=== PATIENT | female | born 1950 | race Asian ===

== ENCOUNTER 2022-03-09 17:57 | Inpatient (IN) | payer OTHER ==
[~2022-03-09] VITALS: Ht 157.5 cm; Wt 34.0 kg
[2022-03-09 18:04] VITALS: BP_SYST 104
--- NOTE | 2022-03-09 18:07 | NUR ---
Accucheck done and results were 103.
--- NOTE | 2022-03-09 19:11 | NUR ---
ER examining patient in the [address] bed.
[2022-03-09] MEDS ORDERED: NACL 0.9% 1,000 ML IV ONE (19:15)
[2022-03-09 19:48] LABS: EOSINOPHILS # (AUTO) 0.1 K/uL (0.0-0.4); LYMPHOCYTES # (AUTO) 0.7 K/uL (1.0-5.5)
[2022-03-09 19:58] LABS: BASOPHILS % (AUTO) 0.5 % (0.0-2.0); EOSINOPHILS % (AUTO) 0.7 % (0.0-4.0); HEMATOCRIT 33.3 % (36-48); HEMOGLOBIN 11.1 g/dL (12.0-16.0); LYMPHOCYTES % (AUTO) 10.4 % (20.5-51.5); MEAN CORPUSCULAR HEMOGLOBIN 30 pg (27-31); MEAN CORPUSCULAR HGB CONC 33 % (32-36); MEAN CORPUSCULAR VOLUME 91 fL (79.0-98.0); MONOCYTES # (AUTO) 0.9 K/uL (0.0-1.0); MONOCYTES % (AUTO) 12.1 % (1.7-9.3); NEUTROPHILS # (AUTO) 5.5 K/uL (1.8-7.7); NEUTROPHILS % (AUTO) 76.3 % (40.0-70.0); PLATELET COUNT (AUTO) 237 K/uL (130-430); RED BLOOD CELL COUNT(AUTO) 3.65 MIL/uL (4.2-6.2); RED CELL DISTRIBUTION WIDTH 14.4 % (9.0-15.0); WHITE BLOOD COUNT (AUTO) 7.2 K/uL (4.8-10.8)
[2022-03-09 19:59] LABS: ANION GAP 10 (5-15); CALCIUM 9.1 mg/dL (8.4-11.0); CHLORIDE 105 mmol/L (98-107); CREATININE 1.34 mg/dL (0.55-1.30); GLUCOSE 126 mg/dL (70-99); POTASSIUM 3.9 mmol/L (3.5-5.1); SODIUM SERUM 140 mmol/L (136-145); UREA NITROGEN, BLOOD 21 mg/dL (8-21)
[2022-03-09 20:08] LABS: ALANINE AMINOTRANSFERASE 8 U/L (12-78); ALBUMIN 2.8 g/dL (3.4-4.8); ASPARTATE AMINOTRANSFERASE 16 U/L (10-37); TOTAL BILIRUBIN 0.7 mg/dL (0.0-1.0)
[2022-03-09 20:10] LABS: GFR AFRICAN AMERICAN 50 mL/min (>90)
--- NOTE | 2022-03-09 20:12 | NUR ---
Received report from Meghan DIAS AOX4 VSS Mandarin speking only
--- NOTE | 2022-03-09 21:57 | NUR ---
Admit bed requested Patient will be admitted to care of . Admitted to Tele unit. Diagnosis syncope Inpatient (Yes or No) yes Observation (Yes or No) no Orientation concerns or request close to nursing station (Yes or No) yes Covid Status negative On vent or bipap no Isolation requirements no Needs a sitter no From Home (Yes or if No enter name of facility) [facility] Requires Dialysis (Yes or No) no Med Rec Completed (Yes of No) pending
[2022-03-09] MEDS ORDERED: MAGNESIUM SULFATE 50 ML IV PRN (22:00)
[2022-03-09] MEDS ORDERED: MUPIROCIN 2% TOPICAL OINTMENT 22 GM NS PRN (22:00)
[2022-03-09] MEDS ORDERED: ONDANSETRON HCL 4 MG/2 ML VIAL IVP PRN (22:00)
[2022-03-09] MEDS ORDERED: MORPHINE 2 MG/ML INJ. SYRINGE IVP PRN ×2 (22:00)
[2022-03-09] MEDS ORDERED: POTASSIUM CHLORIDE 20 MEQ TAB.PRT.SR PO PRN (22:00)
[2022-03-09] MEDS ORDERED: ACETAMINOPHEN 325 MG TABLET PO PRN (22:00)
[2022-03-09] MEDS ORDERED: LORazepam 2 MG/ML VIAL IVP PRN (22:00)
[2022-03-09] MEDS ORDERED: DOCUSATE SODIUM 100 MG CAPSULE PO PRN (22:00)
[2022-03-09] MEDS ORDERED: DEXTROSE 50% JECT 50 ML DISP.SYRIN IVP PRN (22:15)
[2022-03-09] MEDS: NACL 0.9% 1,000 ML IV SCH (22:39)
--- NOTE | 2022-03-09 22:50 | NUR ---
MRSA SAMPLE SENT TO LAB.
--- NOTE | 2022-03-09 22:54 | NUR ---
HERMELINDO SAMPLE SENT TO LAB.
[2022-03-09] MEDS: levETIRAcetam 500 MG TABLET PO SCH (23:13)
--- NOTE | 2022-03-10 00:28 | NUR ---
Pt BIBA after unwitnessed fall @ [facility] AOX3-4 Mandarin speaking VSS Able to make needs known Will continue to monitor
--- NOTE | 2022-03-10 01:02 | NUR ---
Patient will be admitted to [id number]. Belongings list completed. Complete and up to date summary report printed. SBAR report to be given at bedside to ARUN Bernal. with opportunity for questions.
--- NOTE | 2022-03-10 03:30 | NUR ---
ADMIT 71 y/o female brought to the unit from ED. Pt TREVON after unwitnessed fall @ [facility] yesterday. Pt is Mandarin speaking AOX1 maybe 2. Dx with Syncope and Hx of malignant brain tumor frontal lobe, epilepsy and DM.. Pt NPO at this time had a 20G in the L F/A infusing with ns@ 70ml/hr. Pt had stool and urine all over her was given a completed bed bath and all linens changed. Sz precautions in place. Bed in lowest position and all safety measures are in place.
[2022-03-10 04:00] VITALS: BP_SYST 134
[2022-03-10 05:06] LABS: BASOPHILS % (AUTO) 0.4 % (0.0-2.0); EOSINOPHILS # (AUTO) 0.1 K/uL (0.0-0.4); EOSINOPHILS % (AUTO) 1.1 % (0.0-4.0); HEMATOCRIT 32.2 % (36-48); LYMPHOCYTES # (AUTO) 1.1 K/uL (1.0-5.5); LYMPHOCYTES % (AUTO) 17.3 % (20.5-51.5); MEAN CORPUSCULAR HEMOGLOBIN 31 pg (27-31); MEAN CORPUSCULAR HGB CONC 34 % (32-36); MEAN CORPUSCULAR VOLUME 91 fL (79.0-98.0); MONOCYTES # (AUTO) 0.8 K/uL (0.0-1.0); MONOCYTES % (AUTO) 12.7 % (1.7-9.3); NEUTROPHILS # (AUTO) 4.3 K/uL (1.8-7.7); NEUTROPHILS % (AUTO) 68.5 % (40.0-70.0); PLATELET COUNT (AUTO) 196 K/uL (130-430); RED BLOOD CELL COUNT(AUTO) 3.55 MIL/uL (4.2-6.2); RED CELL DISTRIBUTION WIDTH 14.8 % (9.0-15.0); WHITE BLOOD COUNT (AUTO) 6.3 K/uL (4.8-10.8)
[2022-03-10 05:26] LABS: CALCIUM 8.1 mg/dL (8.4-11.0); CREATININE 1.01 mg/dL (0.55-1.30); POTASSIUM 3.6 mmol/L (3.5-5.1)
--- NOTE | 2022-03-10 05:30 | NUR ---
BLOOD SUGAR WAS 95 NO COVERAGE GIVEN.
[2022-03-10 08:00] VITALS: BP_SYST 133
--- NOTE | 2022-03-10 09:15 | NUR ---
CONSULTATION PAGED REASON FOR CONSULTATION:BRAIN NEOPLASM WAS CONSULT CALLED?T -PERSON WHO WAS NOTIFIED:YASHIRA CONSULTING PHYSICIAN:ADITHYA SULLIVAN [facility] SPECIALTY:[employer] PHONE NUMBER:[phone] REQUESTING PHYSICIAN:DR.[facility]
[2022-03-10] MEDS: levETIRAcetam 500 MG TABLET PO SCH ×2 (10:55→21:08)
[2022-03-10] MEDS: NACL 0.9% 1,000 ML IV SCH ×2 (11:22→14:57)
[2022-03-10 12:00] VITALS: BP_SYST 157
--- NOTE | 2022-03-10 14:45 | NUR ---
New IV access Pt pulled out IV access, minimal bleeding noted. New IV access started on R AC 22 gauge intact. NS @ 70 ml/hr, restarted and infusing well. Endorsed to primary nurse,
[2022-03-10 16:04] VITALS: BP_SYST 139
[2022-03-10] MEDS: INSULIN LISPRO SLIDING SCALE 100 UNITS/ML VIAL (humaLOG) SUBCUT PRN (17:45)
[2022-03-10] MEDS: DEXAMETHASONE SOD PHOSPHATE 4 MG/ML VIAL IVP SCH (18:15)
[2022-03-10 20:00] VITALS: BP_SYST 142
--- NOTE | 2022-03-10 20:00 | NUR ---
71 y/o female AOX2, understands commands and nods head from@ [facility] yesterday. Pt is Mandarin speaking AOX1 maybe 2. Dx with Syncope and Hx of malignant brain tumor frontal lobe, epilepsy and DM..contact facility for folllow up on brain tumor, no response. called [facility] to follow up on brain tumor history, VM no answer. lungs are diminished at bases, incontinent. Sz precautions in place. Bed in lowest position and all safety measures are in place.
[2022-03-11] VITALS (7 sets, daily range): BP systolic 105–144
[2022-03-11] MEDS: DEXAMETHASONE SOD PHOSPHATE 4 MG/ML VIAL IVP SCH ×4 (06:00→17:05)
[2022-03-11 06:53] LABS: BASOPHILS % (AUTO) 0.3 % (0.0-2.0); EOSINOPHILS # (AUTO) 0.1 K/uL (0.0-0.4); EOSINOPHILS % (AUTO) 1.2 % (0.0-4.0); HEMATOCRIT 36.7 % (36-48); HEMOGLOBIN 12.5 g/dL (12.0-16.0); LYMPHOCYTES # (AUTO) 1.1 K/uL (1.0-5.5); LYMPHOCYTES % (AUTO) 19.3 % (20.5-51.5); MEAN CORPUSCULAR HEMOGLOBIN 31 pg (27-31); MEAN CORPUSCULAR HGB CONC 34 % (32-36); MEAN CORPUSCULAR VOLUME 91 fL (79.0-98.0); MONOCYTES # (AUTO) 0.7 K/uL (0.0-1.0); MONOCYTES % (AUTO) 11.7 % (1.7-9.3); NEUTROPHILS % (AUTO) 67.5 % (40.0-70.0); PLATELET COUNT (AUTO) 209 K/uL (130-430); RED BLOOD CELL COUNT(AUTO) 4.04 MIL/uL (4.2-6.2); RED CELL DISTRIBUTION WIDTH 14.6 % (9.0-15.0); WHITE BLOOD COUNT (AUTO) 5.9 K/uL (4.8-10.8)
[2022-03-11 07:53] LABS: CALCIUM 8.7 mg/dL (8.4-11.0); CREATININE 0.73 mg/dL (0.55-1.30); POTASSIUM 3.6 mmol/L (3.5-5.1)
[2022-03-11] MEDS: levETIRAcetam 500 MG TABLET PO SCH ×2 (09:08→21:03)
--- NOTE | 2022-03-11 11:25 | NUR ---
Dietitian Recommendations * CCHO, mechanical soft, chopped diet, Glucerna TID, Major BID (supplements yield an additional 930 kcal/day, 35 gm protein/day) * Encourage increase PO intakes LP, RD Please refer to Nutrition Assessment for details. Addendum: 03/11/22 at [address] Amended: Links added. Addendum: 03/11/22 at [address] CORRECTION: * CCHO, mechanical soft, chopped diet, Glucerna TID, Major BID (supplements yield an additional 840 kcal/day, 35 gm protein/day) * Encourage increase PO intakes LP, RD
[2022-03-11] MEDS: INSULIN LISPRO SLIDING SCALE 100 UNITS/ML VIAL (humaLOG) SUBCUT PRN ×2 (12:10→17:05)
[2022-03-11 14:40] LABS: BILIRUBIN,URINE NEGATIVE (NEGATIVE); COLOR,URINE YELLOW (YELLOW); GLUCOSE,URINE NEGATIVE (NEGATIVE); KETONES,URINE NEGATIVE (NEGATIVE); LEUKOCYTE ESTERASE ,URINE 3+ (NEGATIVE); NITRITE, URINE NEGATIVE (NEGATIVE); PROTEIN URINE NEGATIVE (NEGATIVE)
[2022-03-11 14:50] LABS: BLOOD, URINE TRACE (NEGATIVE)
[2022-03-11 14:51] LABS: CLARITY/URINE HAZY (CLEAR)
[2022-03-11 14:52] LABS: BACTERIA,URINE MANY /HPF (None Seen); MUCUS,URINE None Seen /LPF (None Seen); RBC,URINE 0-3 /HPF (0-3); WBC,URINE 50-80 /HPF (0-3)
[2022-03-11] MEDS: NACL 0.9% 1,000 ML IV SCH (17:12)
--- NOTE | 2022-03-11 18:11 | NUR ---
Shift Summary: patient is AAOX2 per family. vitals are stable. new PIV started on R forearm. patient and daughter updated on treatment plan. Patient unable to have MRI done due to MRI not being available on the weekends. patient and daughter state they have no questions or concerns during shift. will endorse to on coming nurse. call light within reach. bed set to low and lock.
[2022-03-11] MEDS: ZOLPIDEM TARTRATE 5 MG TABLET PO PRN (21:03)
[2022-03-12] MEDS: NACL 0.9% 1,000 ML IV SCH ×2 (05:58→20:25)
[2022-03-12] MEDS: DEXAMETHASONE SOD PHOSPHATE 4 MG/ML VIAL IVP SCH ×4 (06:10→23:59)
--- NOTE | 2022-03-12 07:00 | NUR ---
RECEIVED BEDSIDE REPORT. PT IN BED RESTING AWAKE. HOB ELEVATED. BED RAILS UPX2. BED ALARM ON. CALL LIGHT WITHIN REACH. ALL NEEDS MEET AT THIS TIME. Addendum: 03/13/22 at 0507 by Glen Daniel RN [id number]
[2022-03-12 08:00] VITALS: BP_SYST 135
[2022-03-12 08:11] LABS: BASOPHILS % (AUTO) 0.2 % (0.0-2.0); HEMATOCRIT 34.4 % (36-48); HEMOGLOBIN 11.6 g/dL (12.0-16.0); LYMPHOCYTES # (AUTO) 0.4 K/uL (1.0-5.5); LYMPHOCYTES % (AUTO) 7.8 % (20.5-51.5); MEAN CORPUSCULAR HEMOGLOBIN 31 pg (27-31); MEAN CORPUSCULAR HGB CONC 34 % (32-36); MEAN CORPUSCULAR VOLUME 91 fL (79.0-98.0); MONOCYTES # (AUTO) 0.3 K/uL (0.0-1.0); MONOCYTES % (AUTO) 4.8 % (1.7-9.3); NEUTROPHILS # (AUTO) 4.9 K/uL (1.8-7.7); NEUTROPHILS % (AUTO) 87.2 % (40.0-70.0); PLATELET COUNT (AUTO) 219 K/uL (130-430); RED BLOOD CELL COUNT(AUTO) 3.78 MIL/uL (4.2-6.2); RED CELL DISTRIBUTION WIDTH 14.6 % (9.0-15.0); WHITE BLOOD COUNT (AUTO) 5.6 K/uL (4.8-10.8)
[2022-03-12] MEDS: levETIRAcetam 500 MG TABLET PO SCH ×2 (08:44→20:22)
[2022-03-12 09:22] LABS: CALCIUM 9.6 mg/dL (8.4-11.0); CREATININE 0.81 mg/dL (0.55-1.30); POTASSIUM 4.2 mmol/L (3.5-5.1)
[2022-03-12 12:30] VITALS: BP_SYST 130
--- NOTE | 2022-03-12 14:00 | NUR ---
0800-pt stable . vitals stable. not in acute distress. res even and unlabored. eating breakfast. safety and fall precautions in plcae. call light within reach . will continue to monitor
[2022-03-12 16:50] VITALS: BP_SYST 115
--- NOTE | 2022-03-12 17:00 | NUR ---
pt got up sitting in chair. removed her iv. and changed her clothes. removed her tele monitor.. assisted pt back to bed. new iv line started on rt hand #22 with good blood return. flushed well.no s/s of infiltration noted.pt tolerated well. ivf infusing well. will continue to monitor
[2022-03-12] MEDS: INSULIN LISPRO SLIDING SCALE 100 UNITS/ML VIAL (humaLOG) SUBCUT PRN ×2 (18:06→20:24)
--- NOTE | 2022-03-12 19:00 | NUR ---
RECEIVED BEDSIDE REPORT. PT IN BED RESTING AWAKE. HOB ELEVATED. BED RAILS UPX2. BED ALARM ON. CALL LIGHT WITHIN REACH. ALL NEEDS MEET AT THIS TIME.
--- NOTE | 2022-03-12 19:23 | NUR ---
closing notes pt stable . vitals stable. not in acute distress. res even and unlabored. . safety and fall precautions in place. call light within reach . remain stable throughout shift. report given to night nurse
[2022-03-12] MEDS: ZOLPIDEM TARTRATE 5 MG TABLET PO PRN (22:09)
[2022-03-12 22:43] VITALS: BP_SYST 127
--- NOTE | 2022-03-13 | NUR ---
PT ASLEEP IN BED. PT DOESN'T APPEAR TO BE IN PAIN. ALL NEEDS MEET AT THIS TIME. BED ALARM ON. WILL CONTINUE TO MONITOR
[2022-03-13 00:43] VITALS: BP_SYST 128
[2022-03-13 06:10] LABS: BASOPHILS % (AUTO) 0.1 % (0.0-2.0); HEMATOCRIT 34.4 % (36-48); HEMOGLOBIN 11.5 g/dL (12.0-16.0); LYMPHOCYTES # (AUTO) 0.4 K/uL (1.0-5.5); LYMPHOCYTES % (AUTO) 3.5 % (20.5-51.5); MEAN CORPUSCULAR HEMOGLOBIN 30 pg (27-31); MEAN CORPUSCULAR HGB CONC 33 % (32-36); MEAN CORPUSCULAR VOLUME 91 fL (79.0-98.0); MONOCYTES # (AUTO) 0.2 K/uL (0.0-1.0); NEUTROPHILS # (AUTO) 10.8 K/uL (1.8-7.7); NEUTROPHILS % (AUTO) 94.4 % (40.0-70.0); PLATELET COUNT (AUTO) 225 K/uL (130-430); RED BLOOD CELL COUNT(AUTO) 3.79 MIL/uL (4.2-6.2); RED CELL DISTRIBUTION WIDTH 14.8 % (9.0-15.0); WHITE BLOOD COUNT (AUTO) 11.4 K/uL (4.8-10.8)
[2022-03-13] MEDS: DEXAMETHASONE SOD PHOSPHATE 4 MG/ML VIAL IVP SCH ×3 (06:15→20:59)
--- NOTE | 2022-03-13 06:45 | NUR ---
Left 3 voicemails with family to speak with them about the mri questionaire. will endorse to day rn.
[2022-03-13 07:01] LABS: CALCIUM 8.8 mg/dL (8.4-11.0); CREATININE 1.01 mg/dL (0.55-1.30); POTASSIUM 4.3 mmol/L (3.5-5.1)
--- NOTE | 2022-03-13 07:30 | NUR ---
Received report from night stocker RN, and assumed patient care. Will reinforce if needed throughout the shift.
[2022-03-13 08:00] VITALS: BP_SYST 145
[2022-03-13] MEDS: levETIRAcetam 500 MG TABLET PO SCH ×2 (08:38→20:59)
--- NOTE | 2022-03-13 09:30 | NUR ---
Received a call from hot cell technician, and informed hot cell technician unable to obtain MRI questionnaire at the moment due to language barrier and unable to reach family's phone at the moment. Will call back once MRI questionnaire was obtained.
--- NOTE | 2022-03-13 10:30 | NUR ---
Dr. Quiroz at bedside, MD is aware of unable to reach patient's family to complete MRI questionnaire, and will try again. MD recommended to call [phone] (Tiffany Martínez, patient's daughter). Will call once again.
[2022-03-13] MEDS: NACL 0.9% 1,000 ML IV SCH (11:29)
[2022-03-13] MEDS: INSULIN LISPRO SLIDING SCALE 100 UNITS/ML VIAL (humaLOG) SUBCUT PRN ×3 (11:30→20:55)
--- NOTE | 2022-03-13 11:45 | NUR ---
Called Tiffany Martínez ([phone]), no answer and left voicemail trying to obtain questionnaire for MRI. Will recall again later for further details, no new orders noted at the moment. Will reinforce if needed throughout the shift.
[2022-03-13 12:00] VITALS: BP_SYST 137
--- NOTE | 2022-03-13 12:30 | NUR ---
Tiffany Martínez was able to call back and answer MRI questionnaire, no other questions noted at the moment and will reinforce if needed throughout the shift. Dr. Quiroz spoke to patient's daughter no new orders noted at the moment.
--- NOTE | 2022-03-13 13:00 | NUR ---
Patient was able to go to MRI, no complications noted at the moment.
--- NOTE | 2022-03-13 15:02 | NUR ---
Discharge Planning: DCP faxed pt referral to [facility]#[phone]. DCP to follow up.
[2022-03-13 16:00] VITALS: BP_SYST 140
--- NOTE | 2022-03-13 19:05 | NUR ---
RECEIVED BEDSIDE REPORT. PT IN BED RESTING. PT DENIES PAIN AT THIS TIME. CALL LIGHT WITHIN REACH. BED ALARM ON. BED RAILS UPX2. ALL NEEDS MEET AT THIS TIME.
[2022-03-13 20:00] VITALS: BP_SYST 145
--- NOTE | 2022-03-13 20:10 | NUR ---
PT BEDDING SATURATED WITH URINE AND STOOL. PT CLEANED AND REPOSITIONED WITH A NEW GOWN. PT TOOK ALL MEDS. PT REEDUCATED TO USE CALL LIGHT IF SHE NEEDS ASSISTANCE. BED ALARM ON. ALL NEEDS MEET AT THIS TIME. WILL CONTINUE TO MONITOR.
[2022-03-13] MEDS: ZOLPIDEM TARTRATE 5 MG TABLET PO PRN (21:25)
[2022-03-14] MEDS: NACL 0.9% 1,000 ML IV SCH (02:06)
[2022-03-14 04:00] VITALS: BP_SYST 135
[2022-03-14 07:00] VITALS: BP_SYST 125
[2022-03-14] MEDS ORDERED: LEVE500T21 PO (07:00)
--- NOTE | 2022-03-14 07:57 | NUR ---
DISCHARGE PLANNING LATE ENTRY 03/13/22 1250: Received call from dtr Tiffany, ph [phone], states that spoke with MD and aware and agreeable with plan for pt to go to SNF for short term rehab. States in past pt has gone to [facility] but did not like it there and would prefer a different SNF. Informed had choices, gave her [facility], also informed other SNF's if she wants. States would prefer [facility].
--- NOTE | 2022-03-14 09:13 | NUR ---
DISCHARGE PLANNING Order to dc to SNF. Per dc [employer] accepted and bed avail today. Called dtr Tiffany, ashli ph [phone], & informed. [facility], agreeable with dc to [facility] today. States she will call to make appt for Oncologist & Neurologist. Per dc [employer] pl[employer] picker and packer arranged for 1230, updated pt's nurse.
--- NOTE | 2022-03-14 09:21 | NUR ---
Discharge Planning: [facility] arranged transport with [facility] [phone] BLS 12:30pm to [facility] [phone] Rm [id number]. DCP made CM and nurse aware patient packet taken to nurse station. Addendum: 03/14/22 at 1607 by Cassi Zamorano DP Disposition 03
[2022-03-14] MEDS: levETIRAcetam 500 MG TABLET PO SCH (10:00)
[2022-03-14] MEDS: DEXAMETHASONE SOD PHOSPHATE 4 MG/ML VIAL IVP SCH (10:00)
[2022-03-14 12:30] VITALS: BP_SYST 125
== END 2022-03-14 13:00 | DRG 73 ==
LOC: SED 17:57 → EDSEX 17:57 → STU 21:56
PROVIDERS: ADMIT General Practice; ATTEND General Practice
DX: G90.8 Other disorders of autonomic nervous system (principal); N17.0 Acute kidney failure with tubular necrosis; E44.0 Moderate protein-calorie malnutrition; Z68.1 Body mass index [BMI] 19.9 or less, adult; G40.909 Epilepsy, unspecified, not intractable, without status epilepticus; I10 Essential (primary) hypertension; Z85.841 Personal history of malignant neoplasm of brain; D63.8 Anemia in other chronic diseases classified elsewhere; E11.9 Type 2 diabetes mellitus without complications; Z20.822 Contact with and (suspected) exposure to COVID-19
CPT/HCPCS: 36415; 70450-TC; 70486-TC; 70551; 71045; 72125-TC; 76376; 80048; 80053; 81000; 82962; 83036; 83735; 83880; 84484; 85025; 87081; 93005; 93880; 96360; 97116-GP; 97530-GP; 99285; G0378; J1100; J7030